=== PATIENT | female | born 1995 | race Caucasian/White ===

== ENCOUNTER → 2020-08-12 14:30 | Outpatient (CLI) | payer BC, SELFPAY ==
[2016-10-06 19:18] VITALS: BMI 29.1
[2020-08-12 15:32] LABS: Estradiol 42.8 pg/mL; Follicle Stimulating Hormone 6.7 mIU/mL; Luteinizing Hormone 14.7 mIU/mL; Prolactin 5.6 ng/mL; Thyroid Stim Hormone (TSH) 7.19 uIU/mL (0.358-3.74)
[2020-08-13 09:29] LABS: HIV - WCH Non-Reactive (Nonreactive); Hepatitis C Antibody Non-Reactive (Nonreactive)
[2020-08-17 03:06] LABS: Chlamydia By Nucleic Acid AMP Negative (Negative)
[2020-08-17 12:06] LABS: Gonococcus By Nucleic Acid AMP Negative (Negative)
[2020-08-19 01:11] LABS: Rapid Plasmin Reagin (RPR) NONREACTIVE (NONREACTIVE)
[2020-08-19 12:52] LABS: HPV Reflexed? NOT INDICATED
[2020-08-19 16:08] LABS: Testosterone, Free 1.26 ng/dL (0.10-0.85); Testosterone, Total 63 ng/dL (8-48)
== END ==
PROVIDERS: PCP Family Medicine; Referring Provider Obstetrics & Gynecology; Visit Provider Obstetrics & Gynecology
DX: Z12.4 Encounter for screening for malignant neoplasm of cervix (principal); N91.2 Amenorrhea, unspecified; E28.2 Polycystic ovarian syndrome
CPT/HCPCS: 36415; 82627; 82670; 83001; 83002; 83516; 84146; 84402; 84403; 84443; 86592; 86703; 86803; 87491; 87591; 88175; 82626; G0145

== ENCOUNTER → 2020-09-30 12:42 | Outpatient (CLI) | payer BC, SELFPAY ==
[2016-10-06 19:18] VITALS: BMI 29.1
[2020-09-30 15:42] LABS: Hematocrit 38.6 % (37-47); Hemoglobin 11.7 g/dL (12.0-15.0); Mean Corp Hgb Conc 30.3 g/dL (32-36); Mean Corpuscular Hgb 26.9 pg (27.0-32.0); Mean Corpuscular Volume 88.7 fL (81-99); Mean Platelet Vol. 10.5 fl (6.2-12.0); Platelet Count 273 K/mm3 (150-450); RBC Distribution Width CV 13.9 % (11.6-14.6); RBC Distribution Width SD 44.7 fl (35.1-43.9); Red Blood Count 4.35 M/mm3 (4.2-5.4); White Blood Count 5.8 K/mm3 (4.4-11.0)
[2020-09-30 15:58] LABS: Vitamin B12 399 pg/mL (211-911); Vitamin D,25 Hydroxy 16.6 ng/mL
[2020-09-30 16:10] LABS: ALB/GLOB Ratio 1.1 RATIO (0.9-2.4); AST(SGOT) 19 U/L (15-37); Alanine Aminotransfer ALT/SGPT 22 U/L (13-56); Albumin, Serum 3.9 g/dL (3.2-5.0); Alkaline Phosphatase 85 U/L (45-117); Anion Gap 6 (5-15); BUN 13 mg/dL (7-18); BUN/Creat Ratio 19.2 RATIO (10-20); Calcium,Total 9.1 mg/dL (8.5-10.1); Chloride 106 mmol/L (98-107); Cholesterol 119 mg/dL (200); Creatinine, Serum 0.68 mg/dL (0.55-1.02); EST Glomerular Filtration Rate 113 mL/min (>60); Est Glom Filt Rate - Afr Amer 137 mL/min (>60); Globulin 3.6 g/dL (2.2-4.2); Glucose 82 mg/dL (74-106); High Density Lipoprotein 44 mg/dL; Potassium 3.8 mmol/L (3.5-5.1); Protein, Total 7.5 g/dL (6.4-8.2); Sodium Level 141 mmol/L (136-145); T4 Free Direct 0.87 ng/dL (0.76-1.46); Thyroid Stim Hormone (TSH) 2.52 uIU/mL (0.358-3.74); Triglycerides 48 mg/dL; Very Low Density Lipoprotein 10 mg/dL (5-40)
== END ==
LOC: MTLAB 12:44
PROVIDERS: PCP Family Medicine; Referring Provider Family Medicine; Visit Provider Family Medicine
DX: E03.9 Hypothyroidism, unspecified (principal); E28.2 Polycystic ovarian syndrome; R53.83 Other fatigue
CPT/HCPCS: 36415; 80053; 80061; 82306; 82607; 84439; 84443; 85027